=== PATIENT | female | born 1995 | race African-American/Black ===

== ENCOUNTER 2019-09-11 18:23 | Emergency (ER) | payer SELFPAY ==
[~2019-09-11] VITALS: Ht 160 cm; Wt 75.3 kg
[~2019-09-11 18:23] MED LIST: PNV1TABL PO
[2019-09-11 19:44] VITALS: BP 131/78
[2019-09-11] MEDS ORDERED: AMOX875T PO (19:48)
--- NOTE | 2019-09-11 19:48 | PHYS DOC ---
Past Medical History Past Medical History: No Pertinent History Past Surgical History: No Surgical History Alcohol Use: None Drug Use: None Adult General Chief Complaint Chief Complaint: SORE THROAT HPI HPI Patient is a 24 year old female with history of strep throat presents with persistent sore throat 1 week. Patient also reports hoarseness. No dysphagia, trismus, drooling, rash, fevers chills or sweats. Occasional cough. Patient has not been evaluated for her symptoms prior to today's ED visit. [] Review of Systems Review of Systems Review symptoms as per history of present illness. All other review symptoms are negative. All other systems were reviewed and found to be within normal limits, except as documented in this note. Allergies Allergies Allergies Coded Allergies Type Severity Reaction Last Updated Verified No Known Drug Allergies 01/23/14 No Physical Exam Physical Exam Constitutional: Well developed, well nourished, no acute distress, non-toxic appearance. [] HENT: Normocephalic, atraumatic, bilateral external ears normal, oropharynx, tonsils 2+, erythematous, white plaque, no peritonsillar abscess or uvular deviation, nose normal. [] Eyes: PERRLA, EOMI, conjunctiva normal, no discharge. [] Neck: Normal range of motion, no tenderness, supple, mild anterior cervical lymphadenopathy.. [] Cardiovascular:Heart rate regular rhythm, no murmur [] Lungs & Thorax: Bilateral breath sounds clear to auscultation [] Neurologic: Alert and oriented X 3, normal motor function, normal sensory function, no focal deficits noted. [] Psychologic: Affect normal, judgement normal, mood normal. [] EKG EKG [] Radiology/Procedures Radiology/Procedures [] Course & Med Decision Making Course & Med Decision Making Pertinent Labs and Imaging studies reviewed. (See chart for details) [Antibiotics prescribed. Recommendations are for her PCP follow-up as needed.] Dragon Disclaimer Dragon Disclaimer This electronic medical record was generated, in whole or in part, using a voice recognition dictation system. Departure Departure Impression: Primary Impression: Strep pharyngitis Disposition: 01 HOME, SELF-CARE Condition: STABLE Referrals: NO PCP (PCP) Patient Instructions: Strep Throat Additional Instructions: Please take ibuprofen for pain and antibiotics as directed. Follow-up with PCP in 2-3 days as needed. Scripts Amoxicillin (AMOXICILLIN) 875 Mg Tablet 1 TAB PO BID, #14 TAB Prov: ARSLAN LOPEZ DO 09/11/19 ARSLAN LOPEZ DO Sep 11, 2019 19:48
== END 2019-09-11 19:54 | disposition home or self-care (01) ==
LOC: ER 18:23
DX: J02.0 Streptococcal pharyngitis (principal)
CPT/HCPCS: 99283

== ENCOUNTER 2019-09-20 07:08 | Emergency (ER) | payer SELFPAY ==
[~2019-09-20] VITALS: Ht 149.9 cm; Wt 72.6 kg
[~2019-09-20 07:08] MED LIST changes: +AMOX875T PO
[2019-09-20 07:16] VITALS: BP 114/59
--- NOTE | 2019-09-20 07:43 | PHYS DOC ---
Past Medical History Past Medical History: No Pertinent History Past Surgical History: No Surgical History Alcohol Use: None Drug Use: None Adult General Chief Complaint Chief Complaint: SORE THROAT HPI HPI 24-year-old female presenting to the emergency department today with sore throat. She was seen earlier this week and diagnosed with strep throat which she took amoxicillin for. She has a throbbing burning pain in the back of her throat. She said there was a period of lucency where her symptoms improved for a few days and then she started having sore throat again. The pain is nonradiating and without alleviating factors. She denies any drooling. Review of systems is negative for drooling neck swelling neck stiffness tongue swelling. All other review of systems is negative unless otherwise noted in history of present illness. 24-year-old female with sore throat. It is possible that she is a chronic strep carrier and this is a viral upper respiratory infection. It is also possible that she is not responding to amoxicillin. It seems that the patient took her full course of medications but it is also possible that she may have missed a dose or 2. At this point we will watch the patient's symptoms over the next few days and see how her sore throat progresses. I am inclined to refer her to Dr. Hernandez our infectious disease physician to see if he believes this is a non- responding case to strep throat. Unfortunately I had had my conversation with the patient explaining that it was probably an upper respiratory tract infection before I was able to get back in the room to explain to her my referral to Dr. Hernandez. She had already left the department and eloped before we could finish our discharge instructions. Allergies Allergies Allergies Coded Allergies Type Severity Reaction Last Updated Verified No Known Drug Allergies 01/23/14 No SEE ABOVE Physical Exam Physical Exam Constitutional: Well developed, well nourished, no acute distress, non-toxic appearance. [] HENT: Normocephalic, atraumatic, bilateral external ears normal, oropharynx moist, no oral exudates, nose normal. There are no exudates. She has mild erythema of the tonsils. Minimal swelling of the tonsils. No peritonsillar abscess. Uvula is midline Eyes: PERRLA, EOMI, conjunctiva normal, no discharge. [] Neck: Normal range of motion, no tenderness, supple, no stridor. [] No nuchal rigidity. Cardiovascular:Heart rate regular rhythm, no murmur [] Lungs & Thorax: Bilateral breath sounds clear to auscultation [] Abdomen: Bowel sounds normal, soft, no tenderness, no masses, no pulsatile masses. [] Skin: Warm, dry, no erythema, no rash. [] Back: No tenderness, no CVA tenderness. [] Extremities: No tenderness, no cyanosis, no clubbing, ROM intact, no edema. [] Neurologic: Alert and oriented X 3, normal motor function, normal sensory function, no focal deficits noted. [] Psychologic: Affect normal, judgement normal, mood normal. [] Current Patient Data Vital Signs Vital Signs Date Time Temp Pulse Resp B/P (MAP) Pulse Ox O2 Delivery O2 Flow Rate FiO2 09/20/19 07:16 98.4 85 16 114/59 (77) 97 Room Air 98.4 EKG EKG [] Radiology/Procedures Radiology/Procedures [] Course & Med Decision Making Course & Med Decision Making Pertinent Labs and Imaging studies reviewed. (See chart for details) [] Dragon Disclaimer Dragon Disclaimer This electronic medical record was generated, in whole or in part, using a voice recognition dictation system. Departure Departure Impression: Primary Impression: Sore throat Disposition: 01 HOME, SELF-CARE Condition: STABLE Referrals: NO PCP (PCP) HERMINIO HERNANDEZ MD Patient Instructions: Strep Throat Additional Instructions: Thank you for allowing us to participate in your care today. Return to the emergency department you have any new or worsening symptoms, or if you are concerned for any reason. Return to emergency department if you have any new or concerning symptoms including but not limited to fever, chills, nausea, vomiting, intractable pain, any new rashes, chest pain, shortness of air, uncontrolled bleeding, difficulty breathing, and/or vision loss. Follow up with your primary care physician within 1-2 days. Call your Primary Doctor tomorrow and inform them of your visit today. If you do not have a primary care provider we are happy to provide you with a list of our primary care providers contact information. This condition should be evaluated by your primary care physician and any recommended consulting services for continued management within 2 days after discharge. If at any time, you are having difficulty getting into your primary care doctor or a specialist, return to the emergency department. HITESH APPIAH MD Sep 20, 2019 07:43
== END 2019-09-20 07:35 | disposition home or self-care (01) ==
LOC: ER 07:08
DX: J02.9 Acute pharyngitis, unspecified (principal)
CPT/HCPCS: 99281

== ENCOUNTER 2021-02-04 00:15 | Emergency (ER) | payer OTHER ==
[~2021-02-04] VITALS: Ht 149.9 cm; Wt 70.5 kg
[2021-02-04 00:21] VITALS: BP 131/93
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
[2021-02-04] MEDS ORDERED: ORPH100T PO (01:07)
[2021-02-04] MEDS ORDERED: KETOROLAC 30 MG/ML VIAL. IM ONE (01:30)
== END 2021-02-04 01:42 | disposition home or self-care (01) ==
LOC: ER 00:15
DX: S16.1XXA Strain of muscle, fascia and tendon at neck level, initial encounter (principal); S40.022A Contusion of left upper arm, initial encounter; Z87.891 Personal history of nicotine dependence; Z88.1 Allergy status to other antibiotic agents; Z88.5 Allergy status to narcotic agent; Z88.6 Allergy status to analgesic agent; V49.49XA Driver injured in collision with other motor vehicles in traffic accident, initial encounter; Y92.488 Other paved roadways as the place of occurrence of the external cause; Y93.89 Activity, other specified; Y99.8 Other external cause status
CPT/HCPCS: 96372; 99283; J1885